=== PATIENT | male | born 1970 | race Hispanic/Latino ===

== ENCOUNTER 2017-11-01 17:42 | Inpatient (IN) | payer BC, OTHER ==
[~2017-11-01] VITALS: Ht 172.7 cm; Wt 109.8 kg
[~2017-11-01 17:42] MED LIST: METFORMIN HCL500 MG PO
--- OUTSIDE RECORDS SUMMARY | 2017-11-01 17:44 | XMS REPORT ---
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 Allergies, Adverse Reactions, Alerts This patient has no known allergies or adverse reactions. Medications This patient has no known medications. Encounters Start Date/Time End Date/Time Encounter Type Admission Type Attending Clinicians Care Facility Care Department Encounter ID 2016-12-17 19:02:39 2016-12-17 19:02:39 Emergency [facility] [id number] 2016-12-17 13:49:42 2016-12-17 13:49:42 Emergency [facility] [id number]
[2017-11-01] MEDS ORDERED: SODIUM CHLORIDE 0.9% 1000ML 1,000 ML IV STA ×2 (18:37→21:55)
[2017-11-01] MEDS ORDERED: MORPHINE SULFATE 4 MG/ML SYR IV STA (18:37)
[2017-11-01] MEDS ORDERED: PIPER-TAZ 3.375 GM 50 ML IV STA ×2 (18:37→21:53)
[2017-11-01] MEDS ORDERED: ONDANSETRON HCL 4 MG ORAL DISINTEGRATING TAB PO ONE (18:45)
[2017-11-01 21:14] LABS: BASOPHILS # (AUTO) 0.1 (0.0-0.1); BASOPHILS % 0.7 % (0.0-1.0); EOSINOPHILS # (AUTO) 0.1 (0.0-0.4); EOSINOPHILS % 0.8 % (0.0-6.0); HEMATOCRIT 51.4 % (38.2-49.6); HEMOGLOBIN 18.4 g/dL (14.0-18.0); LYMPHOCYTES # (AUTO) 3.6 (1.0-3.2); LYMPHOCYTES % 24.4 % (18.0-39.1); MEAN CORPUSCULAR HEMOGLOBIN 30.7 pg (28-32); MEAN CORPUSCULAR HGB CONC 35.8 g/dL (31-35); MEAN CORPUSCULAR VOLUME 85.7 fL (81-99); MONOCYTES # (AUTO) 1.2 (0.2-0.8); MONOCYTES % 7.9 % (4.4-11.3); NEUTROPHILS # (AUTO) 9.5 (2.1-6.9); NEUTROPHILS % 64.6 % (38.7-80.0); PLATELET COUNT 320 x10e3/uL (140-360); RED CELL DISTRIBUTION WIDTH 11.9 % (11.7-14.4)
[2017-11-01 21:18] LABS: BILIRUBIN,URINE NEGATIVE (NEGATIVE); CLARITY,URINE CLEAR (CLEAR); COLOR,URINE YELLOW (YELLOW); KETONES,URINE NEGATIVE (NEGATIVE); LEUKOCYTE ESTERASE ,URINE NEGATIVE (NEGATIVE); NITRITE,URINE NEGATIVE (NEGATIVE); PROTEIN,URINE DIPSTICK 1+ (NEGATIVE); URINE UROBILINOGEN 0.2 mg/dL (0.2 - 1)
[2017-11-01 21:26] LABS: EPITHELIAL CELLS,URINE MANY /LPF; HYALINE CASTS 0-1 (0-1)
[2017-11-01 21:32] LABS: ALANINE AMINOTRANSFERASE 38 IU/L (0-55); ALBUMIN 3.7 g/dL (3.5-5.0); ALBUMIN/GLOBULIN RATIO 0.8 (0.8-2.0); ALKALINE PHOSPHATASE 129 IU/L (40-150); ANION GAP 16.8 mmol/L (8-16); BLOOD UREA NITROGEN 15 mg/dL (7-26); BUN/CREATININE RATIO 12 (6-25); CALCIUM 10.2 mg/dL (8.4-10.2); CARBON DIOXIDE 22 mmol/L (22-29); CHLORIDE 98 mmol/L (98-107); CREATININE, SERUM 1.26 mg/dL (0.72-1.25); EST GLOMERULAR FILTRATION RATE > 60 ML/MIN (60-); GLUCOSE 297 mg/dL (74-118); POTASSIUM 3.8 mmol/L (3.5-5.1); SODIUM 133 mmol/L (136-145)
[2017-11-01] MEDS ORDERED: ONDANSETRON HCL 4 MG ORAL DISINTEGRATING TAB SL NR (22:00)
[2017-11-01] MEDS ORDERED: PIPER-TAZ 3.375 GM 50 ML IV ONE (22:00)
[2017-11-01] MEDS ORDERED: MORPHINE SULFATE 2 MG/ML SYR IV NR (22:00)
[2017-11-01] MEDS ORDERED: DEXTROSE 50% SYRINGE 50 ML IV PRN (22:45)
[2017-11-01] MEDS ORDERED: ONDANSETRON HCL 4 MG ORAL DISINTEGRATING TAB PO PRN (22:45)
[2017-11-01] MEDS: SODIUM CHLORIDE 0.9% 1000ML 1,000 ML IV SCH (22:46)
[2017-11-01] MEDS: VANCOMYCIN 1GM/NS 250 ML 250 ML IV SCH (23:11)
[2017-11-01] MEDS ORDERED: GLIPIZIDE5 MG PO (23:28)
[2017-11-01] MEDS ORDERED: NOVOLIN N100 UNIT/1 SQ (23:28)
[2017-11-01] MEDS ORDERED: CLONIDINE HCL0.1 MG PO (23:32)
[2017-11-02] VITALS (8 sets, daily range): BP systolic 122–166; BP diastolic 71–103
[2017-11-02] MEDS ORDERED: SIMVASTATIN40 MG PO (00:02)
[2017-11-02] MEDS ORDERED: LISINOPRIL2.5 MG PO (01:10)
[2017-11-02] MEDS: PIPER-TAZ 3.375 GM 50 ML IV SCH ×3 (05:48→22:00)
[2017-11-02 06:47] LABS: BASOPHILS # (AUTO) 0.1 (0.0-0.1); BASOPHILS % 0.6 % (0.0-1.0); EOSINOPHILS # (AUTO) 0.1 (0.0-0.4); EOSINOPHILS % 0.7 % (0.0-6.0); HEMATOCRIT 43.8 % (38.2-49.6); HEMOGLOBIN 15.6 g/dL (14.0-18.0); LYMPHOCYTES # (AUTO) 2.7 (1.0-3.2); LYMPHOCYTES % 19.3 % (18.0-39.1); MEAN CORPUSCULAR HEMOGLOBIN 30.9 pg (28-32); MEAN CORPUSCULAR HGB CONC 35.6 g/dL (31-35); MEAN CORPUSCULAR VOLUME 86.7 fL (81-99); MONOCYTES # (AUTO) 1.2 (0.2-0.8); MONOCYTES % 8.8 % (4.4-11.3); NEUTROPHILS # (AUTO) 9.6 (2.1-6.9); PLATELET COUNT 266 x10e3/uL (140-360); RED BLOOD COUNT 5.05 x10e6/uL (4.3-5.7); RED CELL DISTRIBUTION WIDTH 11.9 % (11.7-14.4)
[2017-11-02 07:16] LABS: ALANINE AMINOTRANSFERASE 26 IU/L (0-55); ALBUMIN 3.1 g/dL (3.5-5.0); ALKALINE PHOSPHATASE 84 IU/L (40-150); ANION GAP 12.8 mmol/L (8-16); BLOOD UREA NITROGEN 11 mg/dL (7-26); BUN/CREATININE RATIO 11 (6-25); CALCIUM 8.5 mg/dL (8.4-10.2); CARBON DIOXIDE 24 mmol/L (22-29); CHLORIDE 105 mmol/L (98-107); CREATININE, SERUM 0.96 mg/dL (0.72-1.25); EST GLOMERULAR FILTRATION RATE > 60 ML/MIN (60-); GLUCOSE 274 mg/dL (74-118); POTASSIUM 3.8 mmol/L (3.5-5.1); SODIUM 138 mmol/L (136-145)
[2017-11-02] MEDS: MORPHINE SULFATE 2 MG/ML SYR IV PRN (07:25)
[2017-11-02] MEDS: INSULIN REGULAR, HUMAN 100 UNIT/1 ML 3ML VIAL SQ SCH ×4 (07:30→21:38)
--- NOTE | 2017-11-02 10:28 | Consultation ---
DATE OF CONSULTATION: November 02, 2017 REASON FOR CONSULTATION: Abdominal abscess. Thank you, Dr. North, for asking me to see this patient. HISTORY OF PRESENT ILLNESS: The patient is a 47-year-old man referred for abdominal abscess. He presented to the emergency department yesterday with painful lesion of the abdominal wall. He noted itching "pimple" of the anterior abdominal wall a day or 2 after staying at a hotel. Subsequently, the lesions progressively got worse. He denies fever and chills. At triage, he was noted to have a temperature of 96.9 degrees Fahrenheit, pulse 85, respiratory rate 18, blood pressure 152/106. Initial laboratory studies show white blood cell count of 14,750 with 64.6% neutrophils. BUN 15, creatinine 1.26 and blood glucose 297. PAST MEDICAL HISTORY: Diabetes mellitus, type 2, hypertension, gout. PAST SURGICAL HISTORY: Incision and drainage of abscess. ALLERGIES: NO KNOWN DRUG ALLERGIES. MEDICATIONS: Current antibiotics are Zosyn 3.375 g IV q.8 h. and vancomycin 1 g IVPB q.12 h. FAMILY HISTORY: Father has hypertension. SOCIAL HISTORY: Depression. Smokes a pack of cigarettes a week. There is no alcohol or recreational drug use. REVIEW OF SYSTEMS: As per history of present illness. The patient does not have fever, chills, cough, shortness of breath, vomiting, and dysuria. The patient reports nausea. Also, he had diarrhea several days earlier, but it resolved spontaneously. He reports difficulty retracting the foreskin. He reports itching prior to inability to retract the foreskin. He had similar symptoms earlier, which resolved. PHYSICAL EXAMINATION GENERAL: No acute distress. VITAL SIGNS: T-max 98.7, pulse 87, respiratory rate 20, blood pressure 123/77, weight 242 pounds. HEENT: Normocephalic. There is no icterus and no injection of conjunctivae. There is no ear or nasal discharge. Moist oral mucosa. No pharyngeal erythema. NECK: Supple. No lymphadenopathy. LUNGS: Clear to auscultation bilaterally. HEART: Normal S1 and S2. ABDOMEN: There is a small lesion with pustule in the right upper quadrant. There is a large lesion with multiple pustules in the suprapubic area with redness, induration and tenderness of the suprapubic and left inguinal area. EXTREMITIES: There is no edema, clubbing or cyanosis. The dorsalis pedis and posterior tibial pulses are palpable. SKIN: There is a tender lesion in the suprapubic area with redness and induration of the suprapubic and left inguinal area as described above. GAS DESULFURIZER: Awake, alert and oriented to person, place and time. The sensation in both feet are normal with monofilament examination. Also, the vibration and sensation of the ankles and feet are normal. LABORATORY: WBC 13,970, hemoglobin 15.5 and platelets 266,000. Neutrophils 69, lymphs 13.3, monos 8.8, eosinophils 0.7, basophils 0.6. BUN 11, creatinine 0.96, blood glucose 241. IMPRESSION 1. Anterior abdominal wall cellulitis present on admission. 2. Intra-abdominal wall abscess and folliculitis present on admission. 3. Diabetes mellitus, type 2, uncontrolled. 4. Tobacco use disorder. PLAN 1. Check wound culture. 2. Await surgical consult. 3. Smoking cessation counseling provided to the patient. 4. Glycemic control. Job#: [id number] [place]
--- NOTE | 2017-11-02 11:16 | History and Physical ---
CLINICAL HISTORY: This is a 47-year-old diabetic admitted via the emergency room because of recurrent abdominal wall abscess. This patient was supposed to take insulin. Apparently he is not taking it. He is not consistently taking his oral diabetic medications. He follows irregularly with Dr. Calhoun. He usually gets his medications through [facility]. He apparently has had abdominal wall abscess as well as neck abscess in the past. He comes in because of worsening abdominal wall abscess despite outpatient management. He was admitted for further evaluation and treatment including intravenous antibiotics and possible surgery. PAST MEDICAL HISTORY: Remarkable also for hyperlipidemia, hypertension and gout. HOME MEDICATIONS: Include: 1. Glipizide 5 mg p.o. daily. 2. Lisinopril 5 mg p.o. daily. 3. Metformin hydrochloride 850 mg b.i.d. 4. Simvastatin 40 mg p.o. daily. PERSONAL AND SOCIAL HISTORY: He was a heavy drinker until 8 years ago. He was drinking a case a day 3 times a week. He has continued to smoke. 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 FAMILY HISTORY: Father had hypertension. Mother had unknown bone disease. REVIEW OF SYSTEMS: Noncontributory. PAST SURGERIES: Include right compartment syndrome and a penile surgery while a baby. Previous abdominal and neck abscess surgery. PHYSICAL EXAMINATION GENERAL: He is somewhat obese, alert and coherent. CARDIAC: Jugular veins were not distended. S1 and S2 were regular. There is no appreciable murmur. LUNGS: Clear. ABDOMEN: Abdominal wall abscess. Soft. EXTREMITIES: No cyanosis, clubbing or edema. LABORATORY STUDIES: White count 14,700, hemoglobin 18.4, platelet count 320,000. Urinalysis showed 1+ protein. Sodium 133, potassium 3.8, BUN 15, creatinine 1.26, glucose 297, total protein 8.3, albumin 3.7. IMPRESSION 1. Abdominal wall abscess, failing outpatient treatment. 2. Diabetes. 3. Hypertension. 4. Hyperlipidemia. 5. Cigarette smoker. 6. Polycythemia, possibly due to smoking as well as volume contraction. 7. Chronic kidney disease, possibly prerenal. Creatinine 1.26, glomerular filtration rate greater than 60. 8. History of gout. 9. Distant history of heavy alcohol usage. 10. Phimosis. RECOMMENDATIONS: Surgery, , and infectious disease consultations. Intravenous antibiotics. Possible abscess drainage. Job#: [id number] MH cc:MD GUILLE BAH MD RAUL GARCIA, MD
[2017-11-02] MEDS: VANCOMYCIN 1GM/NS 250 ML 250 ML IV SCH ×2 (11:30→23:05)
[2017-11-02] MEDS ORDERED: HYDROGEN PEROXIDE 120 ML BTL ONE (15:02)
[2017-11-02] MEDS ORDERED: HYDROCODONE/APAP 7.5MG-325MG 1 EA TAB PO PRN (15:30)
[2017-11-02] MEDS ORDERED: METOCLOPRAMIDE HCL 10 MG/2ML VIAL ONE (15:35)
--- NOTE | 2017-11-02 15:54 | Operative Report ---
DATE OF PROCEDURE: November 02, 2017 PREOPERATIVE DIAGNOSIS: Diabetes mellitus with abdominal wall abscesses. POSTOPERATIVE DIAGNOSIS: Diabetes mellitus with abdominal wall abscesses. PROCEDURE PERFORMED: Incision and drainage of abdominal wall abscesses with debridement of necrotic tissue. ANESTHESIA: General endotracheal. ESTIMATED BLOOD LOSS: Minimal. DRAINS: None. COMPLICATIONS: None. INDICATIONS AND FINDINGS: The patient is a 47-year-old diabetic male admitted with a soft tissue infection of the abdominal wall. INTRAOPERATIVE FINDINGS: The patient had an abscess located in the lower part of the abdomen with a small cavity containing pus and about a 10-cm area of cellulitis surrounding the abscess that had necrotic skin. In the upper part of the abdomen, there was a smaller about 2 cm developing abscess with necrotic skin that measured about 1.5 cm. Then superior to the most lower abscess between the upper and lower was a small area about 3 mm that contained a necrotic patch of skin that was excised. DESCRIPTION OF PROCEDURE: With the patient lying on the operating table in the supine position and after administration of general anesthesia, he was prepped and draped for incision and drainage and debridement of abscess of the abdominal wall. The procedure was begun by draining the lower most larger abscess with surrounding cellulitis. The necrotic skin was excised down to necrotic fat and the cavity entered. Loculations were broken down. Culture and sensitivities were taken. All necrotic tissue was debrided down to viable tissue. The cavity was then irrigated with saline and peroxide and packed with gauze containing saline and peroxide. The same procedure was repeated on the upper most abscess and the smaller 3 mm patch of necrotic skin. The patient tolerated the procedure well, and was taken to the recovery room in stable condition. Job#: [id number] [place]
[2017-11-02] MEDS ORDERED: FENTANYL CITRATE/PF 100MCG/2 ML INJ ONE ×2 (16:01→19:37)
[2017-11-02] MEDS ORDERED: METFORMIN HCL 500 MG TAB PO SCH (17:00)
[2017-11-02] MEDS: METFORMIN HCL 850 MG TAB PO SCH (17:38)
[2017-11-02] MEDS ORDERED: SEVOFLURANE INHAL SOLN 250 ML PEN BTL ONE (18:27)
[2017-11-02] MEDS ORDERED: LIDOCAINE HCL 2% LOCAL INJ 5 ML SDV VIAL INJ ONE (18:27)
[2017-11-02] MEDS ORDERED: DEXAMETHASONE SOD PHOS INJ 4 MG/ML VIAL ONE (18:27)
[2017-11-02] MEDS ORDERED: ROCURONIUM BROMIDE 10 MG/ML 5ML VIAL ONE (18:27)
[2017-11-02] MEDS ORDERED: PROPOFOL IV EMULSION 10 MG/ML 20 ML VIAL ONE (18:27)
[2017-11-02] MEDS ORDERED: KETOROLAC TROMETHAMINE 30 MG/ML VIAL ONE (18:27)
[2017-11-02] MEDS ORDERED: ONDANSETRON HCL INJ 2 MG/ML VIAL ONE (18:27)
[2017-11-02] MEDS ORDERED: MIDAZOLAM HCL 2 MG/2 ML VIAL ONE (19:37)
[2017-11-02] MEDS: SODIUM CHLORIDE 0.9% 1000ML 1,000 ML IV SCH (21:21)
[2017-11-02] MEDS: SIMVASTATIN 40 MG TAB PO SCH (21:21)
[2017-11-03] VITALS (8 sets, daily range): BP systolic 116–142; BP diastolic 66–90
[2017-11-03] MEDS: SODIUM CHLORIDE 0.9% 1000ML 1,000 ML IV SCH (03:07)
[2017-11-03 06:40] LABS: BASOPHILS # (AUTO) 0.1 (0.0-0.1); BASOPHILS % 0.3 % (0.0-1.0); EOSINOPHILS % 0.1 % (0.0-6.0); HEMATOCRIT 40.7 % (38.2-49.6); HEMOGLOBIN 14.5 g/dL (14.0-18.0); LYMPHOCYTES # (AUTO) 2.6 (1.0-3.2); LYMPHOCYTES % 16.9 % (18.0-39.1); MEAN CORPUSCULAR HEMOGLOBIN 30.9 pg (28-32); MEAN CORPUSCULAR HGB CONC 35.6 g/dL (31-35); MEAN CORPUSCULAR VOLUME 86.8 fL (81-99); MONOCYTES # (AUTO) 0.9 (0.2-0.8); MONOCYTES % 5.8 % (4.4-11.3); NEUTROPHILS # (AUTO) 11.3 (2.1-6.9); PLATELET COUNT 248 x10e3/uL (140-360); RED BLOOD COUNT 4.69 x10e6/uL (4.3-5.7); RED CELL DISTRIBUTION WIDTH 11.7 % (11.7-14.4)
[2017-11-03 06:59] LABS: BLOOD UREA NITROGEN 12 mg/dL (7-26); BUN/CREATININE RATIO 13 (6-25); CALCIUM 8.2 mg/dL (8.4-10.2); CARBON DIOXIDE 23 mmol/L (22-29); CHLORIDE 104 mmol/L (98-107); CREATININE, SERUM 0.95 mg/dL (0.72-1.25); EST GLOMERULAR FILTRATION RATE > 60 ML/MIN (60-); GLUCOSE 337 mg/dL (74-118); SODIUM 136 mmol/L (136-145)
[2017-11-03] MEDS: METFORMIN HCL 850 MG TAB PO SCH ×2 (08:00→17:00)
[2017-11-03] MEDS: INSULIN REGULAR, HUMAN 100 UNIT/1 ML 3ML VIAL SQ SCH ×4 (08:00→21:47)
[2017-11-03] MEDS ORDERED: GLIPIZIDE 5 MG TAB PO SCH (09:00)
[2017-11-03] MEDS ORDERED: LISINOPRIL 2.5 MG TAB PO SCH (09:00)
[2017-11-03] MEDS: MORPHINE SULFATE 2 MG/ML SYR IV PRN (10:08)
[2017-11-03] MEDS: VANCOMYCIN HCL 1.5 GM in SODIUM CHLORIDE 0.9% 250ML 300 ML IV SCH (21:24)
[2017-11-03] MEDS: SIMVASTATIN 40 MG TAB PO SCH (21:24)
[2017-11-04] VITALS (7 sets, daily range): BP systolic 119–135; BP diastolic 65–86
[2017-11-04] MEDS: GLIPIZIDE 5 MG TAB PO SCH (08:15)
[2017-11-04] MEDS: INSULIN REGULAR, HUMAN 100 UNIT/1 ML 3ML VIAL SQ SCH ×4 (08:15→20:26)
[2017-11-04] MEDS: LISINOPRIL 10 MG TAB PO SCH (08:15)
[2017-11-04] MEDS: METFORMIN HCL 850 MG TAB PO SCH ×2 (08:15→16:31)
[2017-11-04] MEDS: VANCOMYCIN HCL 1.5 GM in SODIUM CHLORIDE 0.9% 250ML 300 ML IV SCH ×2 (10:23→20:45)
[2017-11-04] MEDS ORDERED: MINOCYCLINE HCL50 MG PO (10:26)
[2017-11-04] MEDS ORDERED: HUMULIN R100 UNIT/2 SQ (10:54)
--- NOTE | 2017-11-04 11:38 | Discharge Summary ---
CLINICAL HISTORY: This is a 47-year-old man, a patient of Dr. Mykel Calhoun, who was admitted via the emergency room because of diabetes and abdominal wall abscess. Please refer to my previous dictation concerning details of current illness, past medical history, personal and social history, family history, review of systems, physical examination and initial laboratory studies. HOSPITAL COURSE: The patient was found to have MRSA treated with intravenous vancomycin followed by the infectious disease databases computer consultant, Dr. Bhargav Mcgrath. He was taken to surgery and had abscess drained. Continued on intravenous antibiotics. The sensitivities returned showing this was sensitive to doxycycline. It was felt by the infectious disease databases computer consultant, Dr. Bhargav Mcgrath, that the patient can go home on doxycycline, to be followed further with Dr. Corwin Poole and Dr. Mykel Calhoun. He was therefore discharged on doxycycline. Other medications are the same. It is recommend that he stay on the low-dose sliding insulin and keep his blood sugar under control. DISCHARGE DIAGNOSES 1. 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 2. Diabetes. 3. Hypertension. 4. Hyperlipidemia. 5. Cigarette smoking. 6. Polycythemia. 7. Chronic kidney disease, creatinine 1.2, improved. 8. History of gout. 9. History of heavy alcohol usage. 10. Phimosis, to be followed by Dr. Tamanna RICK, on an outpatient basis. MICHOACANO TANG MD Job#: [id number] DG cc:MD BHARGAV CASH MD RAMON A. PINEDA, MD DR. WATKINS
[2017-11-04] MEDS: SIMVASTATIN 40 MG TAB PO SCH (20:03)
[2017-11-05] VITALS: BP 139/75
[2017-11-05 04:00] VITALS: BP 109/67
[2017-11-05 07:20] VITALS: BP 129/82
[2017-11-05] MEDS: INSULIN REGULAR, HUMAN 100 UNIT/1 ML 3ML VIAL SQ SCH (07:30)
[2017-11-05] MEDS: GLIPIZIDE 5 MG TAB PO SCH (07:40)
[2017-11-05 07:56] VITALS: BP 129/82
[2017-11-05] MEDS: METFORMIN HCL 850 MG TAB PO SCH (08:00)
[2017-11-05] MEDS: VANCOMYCIN HCL 1.5 GM in SODIUM CHLORIDE 0.9% 250ML 300 ML IV SCH (09:00)
[2017-11-05] MEDS: LISINOPRIL 10 MG TAB PO SCH (09:00)
== END 2017-11-05 11:41 | disposition home health service (06) | DRG 581 ==
LOC: ER 17:42 → ERHOLD 23:52 → MED/SURG3 23:55
PROVIDERS: ADMIT Internal Medicine Cardiovascular Disease; ATTEND Internal Medicine Cardiovascular Disease
PROC: 0HB7XZZ Excision of Abdomen Skin, External Approach (ICD-10-PCS; 2017-11-02)
PROC: 0W9F0ZZ Drainage of Abdominal Wall, Open Approach (ICD-10-PCS; principal; 2017-11-02 15:30)
DX: L02.211 Cutaneous abscess of abdominal wall (principal); N47.1 Phimosis; Z72.0 Tobacco use; E78.5 Hyperlipidemia, unspecified; D75.1 Secondary polycythemia; M10.9 Gout, unspecified; E11.22 Type 2 diabetes mellitus with diabetic chronic kidney disease; I12.9 Hypertensive chronic kidney disease with stage 1 through stage 4 chronic kidney disease, or unspecified chronic kidney disease; N18.9 Chronic kidney disease, unspecified; F10.21 Alcohol dependence, in remission; B95.62 Methicillin resistant Staphylococcus aureus infection as the cause of diseases classified elsewhere
CPT/HCPCS: 36415; 80048; 80053; 80202; 81001; 82948; 83605; 85025; 87040; 87071; 87075; 87086; 87186; 87205; 96367; 99284; J1100; J1885; J2001; J2250; J2270; J2405; J2543; J2765; J3370; J7030; J7050

== ENCOUNTER 2022-01-30 18:45 | Observation (INO) | payer BC ==
[~2022-01-30] VITALS: Ht 172.7 cm; Wt 109.8 kg
[~2022-01-30 18:45] MED LIST changes: +CLONIDINE HCL0.1 MG PO; +GLIPIZIDE5 MG PO; +HUMULIN R100 UNIT/2 SQ; +LISINOPRIL2.5 MG PO; +MINOCYCLINE HCL50 MG PO; +NOVOLIN N100 UNIT/1 SQ; +SIMVASTATIN40 MG PO
[2022-01-30] MEDS ORDERED: KETOROLAC TROMETHAMINE 30 MG/ML VIAL IV STA (19:10)
[2022-01-30] MEDS ORDERED: SODIUM CHLORIDE 0.9% 1000ML 1,000 ML IV ONE (19:15)
[2022-01-30] MEDS ORDERED: ACETAMINOPHEN 325 MG TAB PO ONE (19:15)
[2022-01-30 19:20] LABS: BASOPHILS # (AUTO) 0.1 (0.0-0.1); BASOPHILS % 0.8 % (0.0-1.0); EOSINOPHILS # (AUTO) 0.1 (0.0-0.4); EOSINOPHILS % 1.4 % (0.0-6.0); HEMATOCRIT 54.3 % (38.2-49.6); HEMOGLOBIN 18.2 g/dL (14.0-18.0); LYMPHOCYTES # (AUTO) 2.7 (1.0-3.2); LYMPHOCYTES % 30.6 % (18.0-39.1); MEAN CORPUSCULAR HEMOGLOBIN 30.2 pg (28-32); MEAN CORPUSCULAR HGB CONC 33.5 g/dL (31-35); MONOCYTES # (AUTO) 0.7 (0.2-0.8); MONOCYTES % 7.4 % (4.4-11.3); NEUTROPHILS # (AUTO) 5.1 (2.1-6.9); PLATELET COUNT 296 x10e3/uL (140-360); RED BLOOD COUNT 6.03 x10e6/uL (4.3-5.7); RED CELL DISTRIBUTION WIDTH 12.1 % (11.7-14.4)
[2022-01-30] MEDS: ONDANSETRON HCL INJ 2MG/ML 2ML 2 MG/ML VIAL IV PRN ×2 (19:24→22:29)
[2022-01-30] MEDS ORDERED: INSULIN REGULAR, HUMAN 100 UNIT/1 ML IV ONE (19:30)
[2022-01-30 19:32] LABS: ALBUMIN 3.8 g/dL (3.5-5.0); ALBUMIN/GLOBULIN RATIO 0.9 (0.8-2.0); ANION GAP 16.2 mmol/L (8-16); CALCIUM 8.7 mg/dL (8.4-10.2); CREATININE, SERUM 1.19 mg/dL (0.72-1.25); POTASSIUM 4.2 mmol/L (3.5-5.1)
[2022-01-30 19:41] LABS: CLARITY,URINE CLEAR (CLEAR); COLOR,URINE YELLOW (YELLOW); LEUKOCYTE ESTERASE ,URINE NEGATIVE (NEGATIVE); NITRITE,URINE POSITIVE (NEGATIVE)
[2022-01-30 19:42] LABS: KETONES,URINE NEGATIVE (NEGATIVE); PROTEIN,URINE DIPSTICK NEGATIVE (NEGATIVE); URINE UROBILINOGEN 0.2 mg/dL (0.2 - 1)
[2022-01-30 20:20] LABS: BACTERIA,URINE FEW /HPF; EPITHELIAL CELLS,URINE FEW /LPF; MUCUS,URINE FEW (RARE); RBC,URINE 21-50 /HPF (0-5)
[2022-01-30] MEDS ORDERED: Morphine 4mg INJECTION 4 MG/ML INJ IV ONE (22:15)
[2022-01-31] MEDS ORDERED: DEXTROSE 50% SYRINGE 50 ML IV PRN (00:45)
[2022-01-31] MEDS ORDERED: ACETAMINOPHEN 325 MG TAB PO PRN (03:00)
[2022-01-31] MEDS: SODIUM CHLORIDE 0.9% 1000ML 1,000 ML IV SCH ×3 (04:07→20:45)
[2022-01-31] MEDS: Morphine 4mg INJECTION 4 MG/ML INJ IV PRN (04:07)
[2022-01-31] MEDS: ONDANSETRON HCL INJ 2MG/ML 2ML 2 MG/ML VIAL IV PRN (04:07)
[2022-01-31 06:44] LABS: BASOPHILS % 0.5 % (0.0-1.0); EOSINOPHILS # (AUTO) 0.2 (0.0-0.4); EOSINOPHILS % 3.2 % (0.0-6.0); HEMATOCRIT 48.3 % (38.2-49.6); HEMOGLOBIN 16.5 g/dL (14.0-18.0); LYMPHOCYTES # (AUTO) 2.2 (1.0-3.2); LYMPHOCYTES % 29.9 % (18.0-39.1); MEAN CORPUSCULAR HEMOGLOBIN 30.3 pg (28-32); MEAN CORPUSCULAR HGB CONC 34.2 g/dL (31-35); MEAN CORPUSCULAR VOLUME 88.8 fL (81-99); MONOCYTES # (AUTO) 0.8 (0.2-0.8); MONOCYTES % 10.8 % (4.4-11.3); NEUTROPHILS % 53.6 % (38.7-80.0); PLATELET COUNT 252 x10e3/uL (140-360); RED BLOOD COUNT 5.44 x10e6/uL (4.3-5.7); RED CELL DISTRIBUTION WIDTH 12.6 % (11.7-14.4)
[2022-01-31 07:09] LABS: ANION GAP 14.7 mmol/L (8-16); CALCIUM 7.8 mg/dL (8.4-10.2); CREATININE, SERUM 0.92 mg/dL (0.72-1.25); POTASSIUM 3.7 mmol/L (3.5-5.1)
[2022-01-31] MEDS: INSULIN REGULAR, HUMAN 100 UNIT/1 ML SQ SCH ×4 (07:30→21:00)
[2022-01-31] MEDS ORDERED: REMDESIVIR 100MG 200 MG in SODIUM CHLORIDE 0.9% 100 ML IV ONE (11:00)
[2022-01-31 16:52] VITALS: BP 133/81
[2022-01-31] MEDS ORDERED: FARXIGA5 MG PO (18:57)
[2022-01-31 20:00] VITALS: BP 131/85
[2022-02-01] VITALS: BP 136/87
[2022-02-01 04:00] VITALS: BP 127/72
[2022-02-01 08:07] VITALS: BP 116/76
[2022-02-01 09:00] VITALS: BP 116/76
[2022-02-01] MEDS ORDERED: DEXAMETHASONE SOD PHOS 10 MG/1 ML VIAL IV SCH (09:00)
[2022-02-01] MEDS: INSULIN REGULAR, HUMAN 100 UNIT/1 ML SQ SCH ×2 (09:18→12:05)
[2022-02-01] MEDS ORDERED: HYDROCODON-ACE1 EAC9 PO (09:58)
[2022-02-01] MEDS ORDERED: TOUJEO SOL300 UNIT/1 SC (10:00)
[2022-02-01] MEDS: Morphine 4mg INJECTION 4 MG/ML INJ IV PRN (10:55)
[2022-02-01] MEDS ORDERED: VASOTEC10 M1 PO (10:59)
[2022-02-01] MEDS ORDERED: METOPROLOL SUCC50 MG PO (10:59)
[2022-02-01] MEDS ORDERED: GLIMEPIRIDE2 MG PO (10:59)
[2022-02-01] MEDS ORDERED: REMDESIVIR 100MG 100 MG in SODIUM CHLORIDE 0.9% 100 ML IV SCH (11:00)
[2022-02-01 11:45] VITALS: BP 151/96
[2022-02-01] MEDS ORDERED: ZITHROMAX250 MG PO (15:32)
[2022-02-01] MEDS ORDERED: ENOXAPARIN SOD INJ 40 MG/0.4 ML SYR SC SCH (17:00)
== END 2022-02-01 15:47 | disposition home or self-care (01) ==
LOC: ER 19:45 → ERHOLD 21:38 → MED/SURG3 01-31 13:45
PROVIDERS: ADMIT Internal Medicine; ATTEND Internal Medicine
DX: U07.1 COVID-19 (principal); R06.03 Acute respiratory distress; E66.01 Morbid (severe) obesity due to excess calories; Z68.36 Body mass index [BMI] 36.0-36.9, adult; E11.65 Type 2 diabetes mellitus with hyperglycemia; G89.29 Other chronic pain; M54.50 Low back pain, unspecified; R51.9 Headache, unspecified; Z79.4 Long term (current) use of insulin
CPT/HCPCS: 36415 ×3; 71045; 80048; 80053; 81001; 82948 ×2; 83605; 84484; 85025 ×2; 87040; 87086; 93005; 99285; G0378 ×3; J0248 ×3; J0456 ×2; J0696 ×3; J1100; J1817 ×2; J1885; J2270 ×3; J2405 ×2; J7030 ×2; J7050 ×4; U0002

== ENCOUNTER 2022-09-13 18:03 | Emergency (ER) | payer BC ==
[~2022-09-13] VITALS: Ht 172.7 cm; Wt 109.8 kg
[~2022-09-13 18:03] MED LIST changes: +FARXIGA5 MG PO; +GLIMEPIRIDE2 MG PO; +HYDROCODON-ACE1 EAC9 PO; +METOPROLOL SUCC50 MG PO; +TOUJEO SOL300 UNIT/1 SC; +VASOTEC10 M1 PO; +ZITHROMAX250 MG PO
[2022-09-13 18:57] LABS: BASOPHILS # (AUTO) 0.1 (0.0-0.1); EOSINOPHILS # (AUTO) 0.5 (0.0-0.4); EOSINOPHILS % 4.3 % (0.0-6.0); HEMATOCRIT 50.5 % (38.2-49.6); LYMPHOCYTES # (AUTO) 4.1 (1.0-3.2); LYMPHOCYTES % 38.7 % (18.0-39.1); MEAN CORPUSCULAR HEMOGLOBIN 30.1 pg (28-32); MEAN CORPUSCULAR HGB CONC 33.7 g/dL (31-35); MEAN CORPUSCULAR VOLUME 89.5 fL (81-99); MONOCYTES # (AUTO) 0.9 (0.2-0.8); MONOCYTES % 8.5 % (4.4-11.3); NEUTROPHILS # (AUTO) 4.9 (2.1-6.9); NEUTROPHILS % 45.9 % (38.7-80.0); PLATELET COUNT 282 x10e3/uL (140-360); RED BLOOD COUNT 5.64 x10e6/uL (4.3-5.7); RED CELL DISTRIBUTION WIDTH 12.7 % (11.7-14.4)
[2022-09-13 19:16] LABS: ALBUMIN 3.8 g/dL (3.5-5.0); ALBUMIN/GLOBULIN RATIO 1.2 (0.8-2.0); CALCIUM 8.7 mg/dL (8.4-10.2); CREATININE, SERUM 1.01 mg/dL (0.72-1.25)
[2022-09-13 19:23] LABS: CREATINE KINASE MB 4.8 ng/mL (0-5.0)
== END 2022-09-13 20:45 | disposition home or self-care (01) ==
LOC: ER 18:52
DX: E87.5 Hyperkalemia (principal); E11.65 Type 2 diabetes mellitus with hyperglycemia; I10 Essential (primary) hypertension; M10.9 Gout, unspecified; R94.31 Abnormal electrocardiogram [ECG] [EKG]
CPT/HCPCS: 36415; 80053; 82550; 82553; 84484; 85025; 93005; 99282

== ENCOUNTER 2024-01-02 22:42 | Emergency (ER) | payer BC, OTHER ==
[~2024-01-02] VITALS: Ht 172.7 cm; Wt 109.8 kg
[2024-01-02 22:45] VITALS: TEMP 98.6
[2024-01-02 23:28] LABS: BASOPHILS # (AUTO) 0.1 (0.0-0.1); BASOPHILS % 0.7 % (0.0-1.0); EOSINOPHILS # (AUTO) 0.1 (0.0-0.4); HEMATOCRIT 52.5 % (38.2-49.6); LYMPHOCYTES # (AUTO) 4.1 (1.0-3.2); LYMPHOCYTES % 30.3 % (18.0-39.1); MEAN CORPUSCULAR HGB CONC 34.3 g/dL (31-35); MEAN CORPUSCULAR VOLUME 90.4 fL (81-99); MONOCYTES # (AUTO) 0.9 (0.2-0.8); MONOCYTES % 6.5 % (4.4-11.3); NEUTROPHILS # (AUTO) 8.3 (2.1-6.9); NEUTROPHILS % 60.8 % (38.7-80.0); PLATELET COUNT 272 x10e3/uL (140-360); RED BLOOD COUNT 5.81 x10e6/uL (4.3-5.7); RED CELL DISTRIBUTION WIDTH 12.6 % (11.7-14.4); WHITE BLOOD COUNT 13.61 x10e3/uL (4.8-10.8)
[2024-01-02 23:40] LABS: ALANINE AMINOTRANSFERASE 30 IU/L (0-55); ALBUMIN 4.4 g/dL (3.5-5.0); ALBUMIN/GLOBULIN RATIO 1.4 (0.8-2.0); ALKALINE PHOSPHATASE 137 IU/L (40-150); ANION GAP 17.6 mmol/L (8-16); BILIRUBIN,TOTAL 0.7 mg/dL (0.2-1.2); BLOOD UREA NITROGEN 14 mg/dL (7-26); BUN/CREATININE RATIO 12 (6-25); CALCIUM 9.4 mg/dL (8.4-10.2); CARBON DIOXIDE 18 mmol/L (22-29); CHLORIDE 106 mmol/L (98-107); CREATININE, SERUM 1.15 mg/dL (0.72-1.25); EST GLOMERULAR FILTRATION RATE 77 ML/MIN (>=60); GLUCOSE 208 mg/dL (74-118); POTASSIUM 3.6 mmol/L (3.5-5.1); SODIUM 138 mmol/L (136-145); TOTAL PROTEIN 7.6 g/dL (6.5-8.1)
[2024-01-02 23:56] VITALS: PULSE 80; RESP 18; O2SAT 94
[2024-01-03] MEDS ORDERED: NAPROXEN250 MG PO (00:06)
[2024-01-03 00:07] LABS: TROPONIN I < 0.001 ng/mL (0-0.300)
[2024-01-03 00:37] VITALS: TEMP 98.6
[2024-01-03] MEDS: KETOROLAC TROMETHAMINE 30 MG/ML VIAL IV STA (00:37)
== END 2024-01-03 00:15 | disposition home or self-care (01) ==
LOC: ER 22:45
DX: R06.02 Shortness of breath (principal); R07.89 Other chest pain; I10 Essential (primary) hypertension; E11.65 Type 2 diabetes mellitus with hyperglycemia; M10.9 Gout, unspecified
CPT/HCPCS: 36415; 71045; 80053; 84484; 85025; 93005; 99284; J1885

== ENCOUNTER 2024-02-12 15:07 | Emergency (ER) | payer BC ==
[~2024-02-12] VITALS: Ht 172.7 cm; Wt 109.8 kg
[~2024-02-12 15:07] MED LIST changes: +NAPROXEN250 MG PO
[2024-02-12 15:10] VITALS: PULSE 76; RESP 18; TEMP 99.5
[2024-02-12] MEDS: AMOXICILLIN/CLAVULANATE K 875 MG TAB PO STA (17:01)
[2024-02-12] MEDS: IBUPROFEN 200 MG TAB PO STA (17:01)
[2024-02-12] MEDS ORDERED: AMOX TR-K CLV1 EAC2 PO (17:12)
[2024-02-12] MEDS ORDERED: ULTRAM 50MG50 MG PO (17:13)
[2024-02-12] MEDS ORDERED: OFLOXACIN5 ML RIGHT EAR (17:22)
[2024-02-12 17:37] VITALS: BP 127/68; PULSE 74; RESP 18; TEMP 98.2; O2SAT 98
== END 2024-02-12 17:39 | disposition home or self-care (01) ==
LOC: FSED 15:15
DX: R50.9 Fever, unspecified (principal); H60.91 Unspecified otitis externa, right ear; E11.9 Type 2 diabetes mellitus without complications; M10.9 Gout, unspecified; I10 Essential (primary) hypertension; M54.9 Dorsalgia, unspecified; G89.29 Other chronic pain
CPT/HCPCS: 99283

== ENCOUNTER 2024-11-21 05:51 | Inpatient (IN) | payer BC ==
[~2024-11-21] VITALS: Ht 172.7 cm; Wt 94.3 kg
[2024-11-21] VITALS (8 sets, daily range): BP systolic 142–160; BP diastolic 88–96; PULSE 70–98; RESP 16–20; TEMP 97.3–98.1; O2SAT 99–100
[~2024-11-21 05:51] MED LIST changes: +ALBUTEROL INH; +AMOX TR-K CLV1 EAC2 PO; +ATORVASTATIN CA20 MG PO; +CLEOCIN HCL300 MG PO; +EC-NAPROSYN500 MG PO; +HYDROCODONE PO; +OFLOXACIN5 ML RIGHT EAR; +OMEPRAZOLE40 MG PO; +ONDANSETRON ODT4 MG PO; +PANTOPRAZOLE SO40 MG PO; +ULTRAM 50MG50 MG PO; +ULTRAM50 MG PO; +ZOFRAN4 MG SL
[2024-11-21 06:18] LABS: BASOPHILS # (AUTO) 0.1 (0.0-0.1); BASOPHILS % 0.7 % (0.0-1.0); EOSINOPHILS # (AUTO) 0.3 (0.0-0.4); EOSINOPHILS % 2.4 % (0.0-6.0); HEMATOCRIT 41.7 % (38.2-49.6); HEMOGLOBIN 13.7 g/dL (14.0-18.0); LYMPHOCYTES # (AUTO) 4.2 (1.0-3.2); LYMPHOCYTES % 37.4 % (18.0-39.1); MEAN CORPUSCULAR HGB CONC 32.9 g/dL (31-35); MEAN CORPUSCULAR VOLUME 91.2 fL (81-99); MONOCYTES # (AUTO) 0.7 (0.2-0.8); MONOCYTES % 6.4 % (4.4-11.3); NEUTROPHILS # (AUTO) 5.8 (2.1-6.9); NEUTROPHILS % 52.4 % (38.7-80.0); PLATELET COUNT 324 x10e3/uL (140-360); RED BLOOD COUNT 4.57 x10e6/uL (4.3-5.7); RED CELL DISTRIBUTION WIDTH 13.8 % (11.7-14.4)
[2024-11-21 06:37] LABS: BILIRUBIN,URINE NEGATIVE (NEGATIVE); CLARITY,URINE CLOUDY (CLEAR); COLOR,URINE YELLOW (YELLOW); GLUCOSE, URINE NEGATIVE (NEGATIVE); KETONES,URINE NEGATIVE (NEGATIVE); LEUKOCYTE ESTERASE ,URINE LARGE (NEGATIVE); NITRITE,URINE NEGATIVE (NEGATIVE); PH,URINE 6 (5 - 7); PROTEIN,URINE DIPSTICK 2+ (NEGATIVE); URINE UROBILINOGEN 0.2 mg/dL (0.2 - 1)
[2024-11-21] MEDS: SODIUM CHLORIDE 0.9% 1000ML 1,000 ML IV ONE ×2 (06:37→08:38)
[2024-11-21] MEDS: KETOROLAC TROMETHAMINE 30 MG/ML VIAL IV STA (06:37)
[2024-11-21] MEDS: ONDANSETRON HCL INJ 2MG/ML 2ML 2 MG/ML VIAL IV STA (06:37)
[2024-11-21 06:47] LABS: BACTERIA,URINE MANY /HPF; WBC,URINE (MAN) >50 /HPF (0-5)
[2024-11-21 06:50] LABS: EPITHELIAL CELLS,URINE RARE /LPF
[2024-11-21 06:59] LABS: ALBUMIN 3.8 g/dL (3.5-5.0); ANION GAP 15.7 mmol/L (8-16); BILIRUBIN,TOTAL 0.5 mg/dL (0.2-1.2); CALCIUM 9.4 mg/dL (8.4-10.2); CREATININE, SERUM 4.78 mg/dL (0.72-1.25); POTASSIUM 4.7 mmol/L (3.5-5.1); TOTAL PROTEIN 7.6 g/dL (6.5-8.1)
[2024-11-21] MEDS: SODIUM CHLORIDE 0.9% 1000ML 1,000 ML IV SCH (10:05)
[2024-11-21] MEDS ORDERED: METHOCARBAMOL750 MG PO (10:26)
[2024-11-21] MEDS ORDERED: ATORVASTATIN CA20 MG PO (10:26)
[2024-11-21] MEDS ORDERED: NEURONTIN300 MG PO (10:26)
[2024-11-21] MEDS ORDERED: DIOVAN80 MG PO (10:26)
[2024-11-21] MEDS ORDERED: AMLODIPINE BESY10 MG PO (10:26)
[2024-11-21] MEDS ORDERED: DEXTROSE 50% SYRINGE 50 ML IV PRN (10:45)
[2024-11-21 11:04] LABS: MAGNESIUM 1.4 MG/DL (1.3-2.1); PHOSPHORUS 4.1 MG/DL (2.3-4.7); URIC ACID 9.3 mg/dL (4.8-8.0)
[2024-11-21] MEDS: SODIUM BICARBONATE 8.4% VIAL 150 ML in STERILE WATER IV SOLN 1,000 ML IV SCH (11:25)
[2024-11-21] MEDS ORDERED: SODIUM BICARBONATE 8.4% SYRING 150 ML in STERILE WATER IV SOLN 1,000 ML IV SCH (11:30)
[2024-11-21] MEDS: INSULIN LISPRO 100 UNIT/1 ML 3ML VIAL SQ SCH (11:30)
[2024-11-21 12:11] LABS: CREATININE,URINE RANDOM 56.6 mg/dL (63-166); TOTAL PROTEIN, URINE 46.5 mg/dL (1-14)
[2024-11-21] MEDS: Morphine 2mg Syringe 2 MG/ML SYR IV ONE (20:38)
[2024-11-21] MEDS: NIFEDIPINE CR 30 MG TAB PO SCH (20:39)
[2024-11-22] VITALS: BP 136/84; PULSE 78; RESP 20; TEMP 97.6; O2SAT 97
[2024-11-22 04:00] VITALS: BP 136/81; PULSE 75; RESP 20; TEMP 97.8; O2SAT 92
[2024-11-22 05:18] LABS: BASOPHILS # (AUTO) 0.1 (0.0-0.1); BASOPHILS % 0.5 % (0.0-1.0); EOSINOPHILS # (AUTO) 0.3 (0.0-0.4); EOSINOPHILS % 2.6 % (0.0-6.0); HEMATOCRIT 32.8 % (38.2-49.6); LYMPHOCYTES # (AUTO) 2.3 (1.0-3.2); LYMPHOCYTES % 24.1 % (18.0-39.1); MEAN CORPUSCULAR HEMOGLOBIN 30.6 pg (28-32); MEAN CORPUSCULAR HGB CONC 33.5 g/dL (31-35); MEAN CORPUSCULAR VOLUME 91.1 fL (81-99); MONOCYTES # (AUTO) 0.5 (0.2-0.8); MONOCYTES % 5.2 % (4.4-11.3); NEUTROPHILS # (AUTO) 6.4 (2.1-6.9); NEUTROPHILS % 67.2 % (38.7-80.0); PLATELET COUNT 227 x10e3/uL (140-360); RED CELL DISTRIBUTION WIDTH 13.5 % (11.7-14.4)
[2024-11-22 05:50] LABS: ALBUMIN/GLOBULIN RATIO 1.2 (0.8-2.0); ANION GAP 13.4 mmol/L (8-16); BILIRUBIN,TOTAL 0.4 mg/dL (0.2-1.2); CALCIUM 7.8 mg/dL (8.4-10.2); CREATININE, SERUM 4.62 mg/dL (0.72-1.25); POTASSIUM 4.4 mmol/L (3.5-5.1); TOTAL PROTEIN 5.6 g/dL (6.5-8.1)
[2024-11-22 08:00] VITALS: BP 137/80; PULSE 96; RESP 16; TEMP 98.1; O2SAT 97
[2024-11-22 08:06] VITALS: BP 137/80; PULSE 96; RESP 16; TEMP 98.1; O2SAT 97
[2024-11-22] MEDS: Morphine 2mg Syringe 2 MG/ML SYR IV PRN (08:10)
[2024-11-22] MEDS: SODIUM BICARBONATE 650 MG TAB PO SCH (16:33)
[2024-11-22 20:00] VITALS: BP 118/81; PULSE 82; RESP 18; TEMP 98.3; O2SAT 99
[2024-11-22] MEDS: MAGNESIUM HYDROXIDE 30 ML UDC PO PRN (22:01)
[2024-11-23] VITALS (8 sets, daily range): BP systolic 120–150; BP diastolic 61–81; PULSE 76–91; RESP 18; TEMP 97.9–98.7; O2SAT 94–98
[2024-11-23] MEDS: ONDANSETRON HCL INJ 2MG/ML 2ML 2 MG/ML VIAL IV PRN (02:17)
[2024-11-23 05:46] LABS: ALBUMIN 2.8 g/dL (3.5-5.0); ANION GAP 12.1 mmol/L (8-16); BILIRUBIN,TOTAL 0.5 mg/dL (0.2-1.2); CALCIUM 7.6 mg/dL (8.4-10.2); POTASSIUM 4.1 mmol/L (3.5-5.1); TOTAL PROTEIN 5.5 g/dL (6.5-8.1)
[2024-11-23] MEDS: PANTOPRAZOLE SOD 40 MG TABEC PO SCH (08:43)
[2024-11-23] MEDS: ALLOPURINOL 100 MG TAB PO SCH (08:43)
[2024-11-24 08:00] VITALS: BP 145/82; PULSE 83; RESP 17; TEMP 98; O2SAT 99
[2024-11-24] MEDS: GABAPENTIN 100 MG CAP PO SCH (09:47)
[2024-11-24 10:06] VITALS: BP 145/82; PULSE 83; RESP 17; TEMP 98; O2SAT 99
[2024-11-24 11:07] VITALS: BP 139/78; PULSE 88; RESP 18; TEMP 98.1; O2SAT 97
[2024-11-24] MEDS ORDERED: NIFEDIPINE ER30 M1 PO (13:32)
[2024-11-24] MEDS ORDERED: MILK OF MA400 MG/5 M PO (13:32)
[2024-11-24] MEDS ORDERED: ALLOPURINOL100 MG PO (13:32)
[2024-11-24] MEDS ORDERED: KEFLEX125 MG/5 M PO (13:45)
== END 2024-11-24 13:40 | disposition home or self-care (01) | DRG 690 ==
LOC: ER 05:55 → ERHOLD 08:45 → MED/SURG 09:24
PROVIDERS: ADMIT Internal Medicine; ATTEND Internal Medicine
DX: N39.0 Urinary tract infection, site not specified (principal); N18.4 Chronic kidney disease, stage 4 (severe); N17.9 Acute kidney failure, unspecified; E87.20 Acidosis, unspecified; N25.89 Other disorders resulting from impaired renal tubular function; E11.65 Type 2 diabetes mellitus with hyperglycemia; B96.20 Unspecified Escherichia coli [E. coli] as the cause of diseases classified elsewhere; R31.29 Other microscopic hematuria; N20.0 Calculus of kidney; I12.9 Hypertensive chronic kidney disease with stage 1 through stage 4 chronic kidney disease, or unspecified chronic kidney disease; E11.22 Type 2 diabetes mellitus with diabetic chronic kidney disease; E11.42 Type 2 diabetes mellitus with diabetic polyneuropathy; Z79.4 Long term (current) use of insulin; Z79.84 Long term (current) use of oral hypoglycemic drugs; M10.9 Gout, unspecified; Z87.891 Personal history of nicotine dependence; Z79.899 Other long term (current) drug therapy
CPT/HCPCS: 36415; 74176; 76770; 80053; 81001; 82570; 82948; 83690; 83735; 84100; 84156; 84550; 85025; 87086; 87186; 99284; J0696; J1885; J2270; J2405; J2470; J7030